=== PATIENT | female | born 1950 | race Caucasian/White ===

== ENCOUNTER 2019-11-29 02:45 | Inpatient (IN) | payer MEDICARE ==
[~2019-11-29] VITALS: Ht 160 cm; Wt 130.7 kg
[2019-11-29] MEDS ORDERED: LOVASTATIN40 MG PO (02:53)
[2019-11-29] MEDS ORDERED: HUMULIN 70100 UNIT/2 SC (02:55)
[2019-11-29] MEDS ORDERED: HUMULIN R100 UNIT/1 SC ×2 (02:57→02:58)
[2019-11-29] MEDS ORDERED: ASPIRIN ADULT L81 M1 PO (03:00)
[2019-11-29] MEDS ORDERED: METFORMIN HYD1000 MG PO (03:03)
[2019-11-29] MEDS ORDERED: Synthroid,Lev200 MCG PO (03:04)
[2019-11-29] MEDS ORDERED: ZOLOFT100 MG PO (03:05)
--- NOTE | 2019-11-29 03:37 | NUR ---
MARC JOSÉ a 69 year old F admitted via stretcher from the EMERGENCY ROOM as a voluntary by guardian admission. Arrived on unit at 0337AM. ALLERGIES: NONE. Vital signs are: [id number]/66. TELEPHONE PERMISSION FROM GUARDIAN DEMETRI AYALA RECIEVED. SHE WILL COME IN The AM sign the following forms with stated understanding: Authorization For The Release of Medical Information, Clothing List, Consent to Voluntary Admission and Hospitalization, Consent and Release Forms/Receipt of Rights, Acknowledgement of Advance Directive Information, Behavioral Health Consent Form, and Informed Consent of Medications. Admitted under the services of MARTÍN Ortiz MD. A search was conducted and hazardous articles were removed. Client was oriented to the unit. CLIENT DENIES BEING A PT AT [facility]. 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 STATES HE WORKED FOR HER AT THE [employer] AND MISSES HIM SO MUCH. STATES SHE DID NOT ATTACK OR THROW THINGS AT THE STAFF AND SHE IS FREE TO LEAVE THAT PLACE ANY TIME SHE WANTS BECAUSE SHE'S NOT A PATIENT. BECAME AGGRESSIVE WHEN TOLD SHE WOULD NEED SHOWER DUE TO URINE SMELL PRIOR TO BED. SHE HELD INK PEN IN FIST AND WAS SHAKING TOWARD MY FACE. PEN REMOVED. A SHORT TIME LATER SHE SAID, SEE I CALMED DOWN WELL. 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 UNABLE TO REDIRECT. SANDI BRUCE
--- NOTE | 2019-11-29 03:46 | NUR ---
DR GALLAGHER NOTIFIED OF MEDICAL CONSULT & MED REQ READY FOR REVIEW. STATED TO PUT CONSULT UNDER DR SOOD.
[2019-11-29 03:54] VITALS: BP 116/66
--- NOTE | 2019-11-29 04:05 | NUR ---
DR BARRERA ON UNIT TO SEE PT FOR MEDICAL CONSULT.
[2019-11-29 07:04] LABS: CHOLESTEROL 141 mg/dL (<200); HDL CHOLESTEROL 46 mg/dl (40-60); LDL CHOLESTEROL 70 mg/dL (9-159); TRIGLYCERIDES 127 mg/dl (<150); VLDL CHOLESTEROL 25 mg/dL (6-40)
[2019-11-29 07:44] LABS: VITAMIN D, 25-HYDROXY 10.8 ng/mL (30-100)
--- NOTE | 2019-11-29 08:15 | NUR ---
Treatment Plan meeting was held with Dr. Adams, YAKELIN Shaw, RN, AT, [employer] COOK-S and Cell Preparer in attendance. Plan for discharge next week. Pt. [facility] from [facility]. Will reach out to facility to discuss discharge planning.
[2019-11-29 08:57] VITALS: BP 112/67
--- NOTE | 2019-11-29 11:37 | NUR ---
AM GROUP/EXERCISE AND GAMES PT DID NOT ATTEND MORNING GROUP THERAPY. PT WAS IN BED RESTING.
--- NOTE | 2019-11-29 12:33 | NUR ---
Family meeting held with pt's guardian Harika Guidryasherjusta. Discussed pt's history. Harika became the court appointed guardian of pt in 09/10. Per Harika, pt was found in deplorable conditions and not caring for herself. 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 Pt believes that the group homes are running smoothly and that she is making business decisions. This is not the case. One chcf remains open and the propreties are being foreclosed upon. Pt also believes that her nephew recently who assisted in managing the group homes. Harika stated that this is a delusion of the patient. Harika stated that pt can become quite aggressive with staff. Plan is for pt to return to [facility].
--- NOTE | 2019-11-29 14:16 | NUR ---
Spoke with Doretha at [place]. Pt. will return to facility at discharge.
--- NOTE | 2019-11-29 14:30 | NUR ---
Clinical Updates faxed to [facility].
--- NOTE | 2019-11-29 15:33 | NUR ---
PM GROUP/FLORIDALMA PT ATTENDED AND PARTICIPATED IN AFTERNOON GROUP THERAPY. PT EXHIBITED NO AGGRESSIVE BEHAVIORS WHILE IN GROUP.
--- NOTE | 2019-11-29 18:27 | NUR ---
A&O X3. NO ADVERSE BEHAVIORS TODAY. BEHAVIORS MONITORED WITH Q15 MINUTE SAFETY CHECKS. MEDICATION COMPLIANT WITHOUT DIFFICULTY. NO HALLUCINATIONS OR DELUSIONS NOTED. NO SI/HI NOTED. SEE [facility] FLOWSHEET FOR SPECIFIC MONITORING.
[2019-11-29 20:00] VITALS: BP 138/63
--- NOTE | 2019-11-29 21:27 | NUR ---
UP IN WHEELCHAIR IN DININGROOM. CLIENT ABLE TO MOVE HERSELF WELL. INTERACTING WITH PEERS. REMAINS A&O x3 AT THIS TIME. PERIODS OF DELUSIONS AND SHORT TERM MEMORY LOSS CONTINUE. STATES I KNOW HER MARGARITA JOSÉ FROM YEARS AGO AT [facility]. UNABLE TO CONFIRM AT THIS TIME. STATES HAD A GREAT DAY PLAYING [employer] AND WINNING 2 GAMES.
--- NOTE | 2019-11-30 02:05 | NUR ---
24 HR chart check completed.
[2019-11-30 08:09] VITALS: BP 129/66
--- NOTE | 2019-11-30 08:15 | NUR ---
Treatment Plan meeting was held with Dr. Adams, YAKELIN Shaw, RN, AT, CORN PICKER-S and Medical Consultant in attendance. Plan for discharge next week. Pt. to return to [facility].
--- NOTE | 2019-11-30 10:58 | NUR ---
Clinical Updates faxed to [facility] Attn: Doretha [phone].
--- NOTE | 2019-11-30 11:37 | NUR ---
AM GROUP PT DID NOT ATTEND MORNING GROUP THERAPY. PT WAS IN BED SLEEPING.
--- NOTE | 2019-11-30 14:03 | NUR ---
PATIENT SITTING IN DINING ROOM, ASSISTED TO WHEELCHAIR TO PRIVATE ROOM TO ASSESS ABDOMEN. PATIENT REFUSED SKIN WOUND MEASUREMENTS AND PICTURES ON ADMISSION. PATIENT ALLOWED THIS NURSE TO MEASURE AND TAKE PICTURES. 3 AREA NOTED TO LEFT SIDE OF ABDOMEN, EXCORIATION NOTED TO ABDOMENAL FOLD. DR GALINDO NOTIFIED AND REVIEWED PREVIOUS WOUND TREATMENT FROM SENIOR CARE. CERAMIC SPRAYER, NURSING INSPECTOR BALANCE WHEEL MOTION AND GUARDIAN NOTIFIED. WOUND TREATMENTS IN PLACE.
--- NOTE | 2019-11-30 15:37 | NUR ---
PM GROUP/TOM VILLANUEVA PT ATTENDED AND PARTICIPATED IN ALL AFTERNOON GROUP THERAPY ACTIVITIES. PT EXPRESSED NO DELUSIONS WHILE IN GROUP NOR EXHIBITED ANY AGGRESSION OR AGITATION
--- NOTE | 2019-11-30 19:50 | NUR ---
PATIENT IS ALERT TO PERSON, PLACE AND SITUATION;ABLE TO VOICE NEEDS. MOOD IS DEPRESSED, ANGRY/IRRITABLE. DENIES ANY HALLUCINATIONS, DELUSIONS, HI/SI OR PAIN. PATIENT HAVING DELUSIONS OF NEPHEW PASSING RECENTLY. 1-2 PERSON ASSIST WITH ACTIVITIES OF DAILY LIVING, INCONTINENT OF BOWEL AND BLADDER. SET UP FOR MEALS, INTAKES ARE GOOD WITH ADQUATE FLUIDS. MEDICAITON COMPIANT. Q 15 MINUTE SAFETY CHECKS MAINTAINED. INTERACTIVE WITH STAFF AND PARTICIPATED IN GROUPS SESSIONS. CONTINUE TO MONITOR FOR EXIT SEEKING, AGGRESSION AND HALLUCINATIONS/DELUSIONS. PROVIDE ONE ON ONE AND REDIRECTION NEEDED.
[2019-11-30 20:23] VITALS: BP 146/72
--- NOTE | 2019-12-01 01:24 | NUR ---
NO ADVERSE BEHAVIORS NOTED. PATIENT ALERT AND ORIENTED X3. PT CALM, COOPERATIVE, AND INTERACTIVE. PT MEDICATION COMPLIANT WITHOUT DIFFICULTY AFTER REVIEW. PT DENIES SI/HI AND HALLUCINATIONS, NO NOTED RESPONDING TO INTERNAL STIMULI. NO PARANOIA OR DELUSIONS NOTED. COOPERATIVE WITH HOC, MOBILIZES SELF AROUND UNIT USING WHEELCHAIR, X2 ASSIST. PT C/O "ALL OF PAIN" OF 06/01 AT 0034 AND RECEIVED PRN TYLENOL 650mg REQUESTED. NO OTHER PHYSICAL COMPLAINTS NOTED. PT CURRENTLY LAYING DOWN WITH EYES CLOSED, RESPIRATIONS EASY AND REGULAR, NO SIGNS OR SYMPTOMS OF DISTRESS NOTED. PRN TYLENOL EFFECTIVE AT THIS TIME. PLAN IS TO CONTINUE TO MONITOR MOOD AND BEHAVIORS. PROVIDE 1:1 WITH THERAPEUTIC INTERVENTIONS NEEDED. ENCOURAGE MEDICATION COMPLIANCE AND EDUCATE. MAINTAIN Q 15 MIN CHECKS.
--- NOTE | 2019-12-01 04:51 | NUR ---
24 HOUR CHART CHECK COMPLETED.
--- NOTE | 2019-12-01 06:25 | NUR ---
MARC JOSÉ [id number] Please refer to the physician's history and physical for past medical history, comorbid conditions, and allergies. Diagnosis: IMPULSE CONTROL DISORDER NOS Peter Score: 14,MODERATE RISK WOUND DESCRIPTIONS: Wound Number: 1 Location of the wound: medial aspect of left lower abdominal fold ( distal ) Thickness: Partial Size: 0.3cm x 1.3cm x 0.1cm Tunneling: none Undermining: none Sinus Tract: none Presence of Exudate: Serous Amount: Light Color: Red Odor: None Periwound Skin Appearance: Scar Wound edges: approximated Pain (associated with wound): none at time of assessment How does patient state this happened? pt stated this was from her jeaida several months ago Wound Number: 2 Location of the wound: lateral aspect of left lower abdominal fold ( distal ) Thickness: Partial Size: 0.2cm x 0.4cm x 0.1cm Tunneling: none Undermining: none Sinus Tract: none Presence of Exudate: Serous Amount: Light Color: Red Odor: None Periwound Skin Appearance: Scar Wound edges: approximated Pain (associated with wound): none at time of assessment How does patient state this happened? pt stated this was from her jeaida several months ago Wound Number: 3 Location of the wound: left lower abdominal fold ( proximal ) Thickness: Partial Size: 0.5cm x 0.9cm x 0.1cm Tunneling: none Undermining: none Sinus Tract: none Presence of Exudate: Serous Amount: Light Color: Red Odor: None Periwound Skin Appearance: Scar Wound edges: approximated Pain (associated with wound): none at time of assessment How does patient state this happened? pt stated this was from her jeaida several months ago Surface the patient is resting on: Proform SKIN PREVENTION RECOMMENDATION: 1. Pressure redistribution support surface as appropriate 2. Elevate heels 3. Remove boots/TEDS every shift and reapply 4. Head of bed 30 degrees as tolerated 5. Assess nutrition and hydration 6. Manage moisture 7. Avoid the use of containment devices while in bed 8. Use absorptive products on surfaces limit layers of linens on bed 9. Turn and reposition every 1-2 hours in bed and every 1 hour in chair as tolerated 10. Weight shifts every 15 minutes while up in chair 11. Offloading with pillows or device to keep heels elevated off bed 12. Monitor skin at least every shift 13. Inspect under medical devices twice a day WOUND TREATMENT RECOMMENDATIONS: D/C stage 1 guidelines. D/C nystatin powder every 12 hours. Partial thickness guidelines: Cleanse medial aspect of left lower abdominal fold proximal, lateral aspect of left lower abdominal fold proximal, left lower abdominal fold distal aspect with nss and apply sureprep around the wound hydrogel to wound bed and cover with optifoam gentle every 2 days and prn for soiling.
--- NOTE | 2019-12-01 06:43 | NUR ---
CALLED, UPDATED ON PATIENTS RECENT BSG OF 100 AND IS DUE FOR 45 UNITS OF HUMULIN 70/30. STATED TO HOLD HUMULIN AT THIS TIME. NO OTHER ORDERS RECEIVED.
--- NOTE | 2019-12-01 06:56 | NUR ---
PATIENT OBSERVED ON Q 15 MIN CHECKS TO HAVE SLEPT APPROX 7 HOURS. NO SIGNS OR SYMPTOMS OF DISTRESS NOTED.
[2019-12-01 07:44] VITALS: BP 135/70
--- NOTE | 2019-12-01 08:06 | NUR ---
CONTACTED PT OFFICE IN REFERENCE TO CONSULT.
--- NOTE | 2019-12-01 08:15 | NUR ---
Treatment plan meeting was held with Dr. Adams, RN, AT, REHAB TRAINER-S and Senior Oracle Applications Developer in attendance. Plan for discharge next week Thursday or Thursday. Pt. will return to [facility].
--- NOTE | 2019-12-01 08:17 | NUR ---
PHYSICAL THERAPY Screen received as well as PT orders will follow thank you Salina Burns PT
--- NOTE | 2019-12-01 08:22 | NUR ---
Nursing screen and Occupational Therapy referral received. Thank you. Reyna Schulte OTR/L
--- NOTE | 2019-12-01 09:56 | NUR ---
Dr. Robles notified of wound care recommendations.
--- NOTE | 2019-12-01 10:00 | NUR ---
SPOKE WITH DR. MONTIEL IN REFERENCE TO PT BLOOD SUGAR AND /30 INSULIN. MONITOR AND REPORT BLOOD SUGARS TODAY
--- NOTE | 2019-12-01 11:46 | NUR ---
AM GROUP PT DID NOT ATTEND MORNING GROUP THERAPY. PT WAS IN BED SLEEPING.
--- NOTE | 2019-12-01 13:45 | NUR ---
Occupational Therapy evaluation completed on 3 with full eval to follow. Precautions include 3n unit precautions,fall risk left knee heron,mod complexity 35705. Recommend OT per POC and return to SNF to enable return home w/ family. Thank you. Carol Schulte OTR/L
--- NOTE | 2019-12-01 15:55 | NUR ---
PHYSICAL THERAPY Namrata completed moderate level of complexity 58297 recomend return to NH facility w f/u therapy. PT to work on transfers,amb,strengthening. Salina Burns PT
--- NOTE | 2019-12-01 15:56 | NUR ---
P: DELUSIONS ABOUT GROUP HOMES THAT SHE NEEDS TO RETURN TO FOR CARE OF HER PT. WOUNDS TO ABDOMEN, POOR MOBILITY I: TALKED WITH PT IN REFERENCE TO GROUP HOMES TO BRING REALITY TO THE FACT SHE IS NO LONGER IN CHARGE OF THE HOMES. PROVIDE WOUND CARE AND EDUCATE PT ON ENSURING TO KEEP AREA CLEAN WITHOUT PRESSURE BEING APPLIED TO SITES, ASSIST PT TO AMBULATE SHORT DISTANCES WITH STAFF R: PT COOPERATIVE PLEASANT WITH INTERACTION, PT HAS PANTS PULLED UP TO FOLD WHERE ESCORIATIONS ARE, ATTEMPT TO REPOSITION NEEDED. TOILET FREQUENTLY. PT AMBULATES WITH STAFF <10 FEET AT THIS TIME AND WILL [facility]IVOT [facility] WHEELCHAIR [facility], PT RECEPTIVE TO EDUCATION BUT IS NOT WILLING TO ACCEPT SHE IS NO LONGER IN CHARGE OF THE GROUP HOMES. P: CONTINUE TO APPROACH PT ABOUT REALITY, NO SI/HI NOTED. PT HAS NOT MADE ANY AGRESSIVE ACTIONS TOWARD STAFF, MEDICATION COMPLIANT WITHOUT DIFFICULTY. PT SMILING AND INTERACTIVE WITH STAFF, REQUIRES 1 FOR ALL ASPECTS OF CARE.
--- NOTE | 2019-12-01 15:56 | NUR ---
PM GROUP PT ATTENDED AND PARTICIPATED IN AFTERNOON GROUP THERAPY. PT WAS QUIET AND ON TASK. PT EXPRESSED NO DELUSIONAL IDEATIONS NOR EXHIBITED ANY AGITATION OR AGGRESSION. PT WAS PLEASANT AND COOPERATIVE.
--- NOTE | 2019-12-01 16:32 | NUR ---
DR. GALINDO UPDATED ON PT BLOOD SUGARS OF 139 AND 224 NEW ORDERS RECIEVED AT THIS TIME
[2019-12-01 20:07] VITALS: BP 132/61
--- NOTE | 2019-12-02 00:24 | NUR ---
NO ADVERSE BEHAVIORS NOTED. PATIENT ALERT AND ORIENTED X3. PT CALM, PLEASANT, AND INTERACTIVE. PT MEDICATION COMPLIANT WITHOUT DIFFICULTY AFTER REVIEW. PT DENIES SI/HI, HALLUCINATIONS, OR PAIN. NO PARANOIA/DELUSIONS NOTED. PT ABLE TO MAKE NEEDS KNOWN, COMPLIANT WITH CARE, ASSIST X1. PT CURRENTLY LAYING DOWN WITH EYES CLOSED, RESPIRATIONS EASY AND REGULAR ON ROOM AIR. NO SIGNS OR SYMPTOMS OF DISTRESS NOTED. PLAN IS TO CONTINUE TO MONITOR MOOD AND BEHAVIORS. PROVIDE 1:1 WITH THERAPEUTIC INTERVENTIONS. ENCOURAGE MEDICATION COMPLIANCE AND EDUCATE. MAINTAIN Q 15 MIN CHECKS.
--- NOTE | 2019-12-02 04:25 | NUR ---
Upon discharge recommend patient to follow up for wound care in outpatient setting continue current wound care orders at discharging facility.
--- NOTE | 2019-12-02 05:35 | NUR ---
24 HOUR CHART CHECK COMPLETED.
--- NOTE | 2019-12-02 05:53 | NUR ---
PT SLEPT APPROX 6 HOURS THIS SHIFT.
--- NOTE | 2019-12-02 06:39 | NUR ---
CALLED RESIDENT [phone], SPOKE TO DR. GALLAGHER, UPDATED ON PATIENTS RECENT BSG OF 128 AND IS DUE FOR HUMULIN 70/30, 40 UNITS. STATED TO GO AHEAD AND HOLD FOR NOW AND MONITOR. NO OTHER ORDERS RECEIVED.
--- NOTE | 2019-12-02 07:10 | NUR ---
PHYSICAL THERAPY Patient seen this am for therapy visit and just awakening supine in bed upon therapist arrival. Patient identified by name / and was joined by OT communications assistant for observation only. Patient reports no new c/o's and transfers supine to sit EOB, MOD A, while tolerating a minute or so of static sit to collect herself. Patient performed sit to stand MIN A, ambulating 20'x 1, use of wh walker, CGA, demonstrating very slow, "waddling" unsteady gait pattern. Patient needed v/c to improve upright posture and returned to her w/c following gait ex. Patient remained in w/c within activity room, under [facility] staff Supervision awaiting breakfast. Will continue per POC as tolerated, total treatment time 14 minutes. Shakeel Fitzgerald, CERAMIC WORKER
--- NOTE | 2019-12-02 07:30 | NUR ---
OT NOTE Pt was seen this A.M. 1:1 for 25 minute OT session with SCHEDULING COORDINATOR and nursing staff present for observation only. Upon arrival pt was supine in bed. Pt identified by name and and had no complaints at this time. Pt transferred supine to sit EOB with modA for assist with UB. While sitting EOB pt donned B socks with Kailyn while bringing her legs up to her knee level. Sit to stand completed from bed level with Kailyn and use of w/w for UE support. Functional mobility was then completed into the bathroom with CGA and use of w/w. There she trasnferred on/off standard commode with Kailyn. Pt doffed pants with SBA while seated and donned new pants with Kailyn for assist with donning over her feet. Pt doffed and donned new shirt with SBA while seated. Pt then stood sink side while washing her hands and face with CGA for safety. Pt had three LOB thrughout while standing without UE support for longer than 10 seconds at a time requiring Kailyn to correct. Pt was left sitting upright in the w/c in the dining mariee under [facility] staff supervision. Continue with rec D/C plan to return to SNF. LENORE Kirkpatrick/Lashanda
[2019-12-02 08:00] VITALS: BP 130/63
--- NOTE | 2019-12-02 08:15 | NUR ---
Treatment Plan meeting was held with YAKELIN Shaw, RN, AT, FUNERAL SERVICE LICENSEE-S and Pyroglazer in attendance. Plan for discharge next week. Pt. to return to [place].
--- NOTE | 2019-12-02 10:24 | NUR ---
AND TEAM ON UNIT TO SEE PT AT THIS TIME.
--- NOTE | 2019-12-02 10:27 | NUR ---
AND TEAM ON UNIT TO SEE PT AT THIS TIME.
--- NOTE | 2019-12-02 11:42 | NUR ---
AN GROUP PT DID NOT ATTEND MORNING GROUP THERAPY. PT WAS IN BED RESTING.
--- NOTE | 2019-12-02 14:31 | NUR ---
Clinical Updates faxed to [facility].
--- NOTE | 2019-12-02 15:13 | NUR ---
OCCUPATIONAL THERAPY CO-SIGN I approve of the Occupational Therapy notes written above. KAREEM GRIFFITHS OTR/Lashanda
--- NOTE | 2019-12-02 15:18 | NUR ---
PHYSICAL THERAPY CO-SIGN I approve of the Physical Therapy notes written above. Salina Burns PT
--- NOTE | 2019-12-02 15:36 | NUR ---
PM GROUP/MOVIE PT ATTENDED AFTERNOON GROUP THERAPY AND PARTICIPATED BY WATCHING THE MOVIE. PT EXPRESSED NO DELUSIONAL IDEATIONS WHILE IN GROUP. PT WAS QUIET AND FOCUSED ON THE MOVIE
--- NOTE | 2019-12-02 16:04 | NUR ---
P- PT CONTINUES WITH DELUSIONAL THOUGHTS REGARDING THE FACT THAT HER NEPHEW HAS RECENTLY . STAFF HAS LEARNED FROM GUARDIAN THAT THIS IS A DELUSION AND HER NEPHEW HAS NOT ACTUALLY PASSED RECENTLY. I- ORIENTATION, MOOD AND BEHAVIOR ASSESSED. ASSESSED PT FOR SI/HI, INTENT OR PLAN. ASSESSED PT FOR S/S HALLUCINATIONS, PARANOIA AND/OR DELUSIONS. MEDICATIONS ADMINISTERED PER PHYSICIAN'S ORDERS. ASSISTANCE WITH ADL CARE PROVIDED NEEDED. ENCOURAGED PT TO ATTEND AND PARTICIPATE IN [facility] GROUPS AND ACTIVITIES. WOUND CARE TREATMENTS COMPLETED ORDERED. R- PT IS ALERT AND ORIENTED TO PERSON, PLACE, APPROXIMATE TIME. MILD CONFUSION NOTED. PLEASANT AND COOPERATIVE. MOOD IS STABLE, AFFECT APPROPRIATE. SPEECH IS WNL AND COHERENT, ABLE TO MAKE NEEDS KNOWN WITHOUT DIFFICULTY. PT VOICED DELUSION REGARDING NEPHEW'S , PT STATED TO THIS NURSE "I'VE NEVER HAD THIS TYPE OF THING BEFORE, BUT YOU KNOW, MY NEPHEW RECENTLY AND IT'S JUST UPSET THE APPLE CART". PT STATES SHE IS FEELING BETTER THAN ADMISSION. PT DENIES SI/HI, INTENT OR PLAN. PT DENIES HALLUCINATIONS, NO RESPONSE TO INTERNAL STIMULI NOTED. NO PARNOIA NOTED. PT IS MED COMPLIANT WITHOUT DIFFICULTY. PT INTERACTS WELL WITH STAFF AND PEERS. NO DISTRESS NOTED. P- PLAN TO CONTINUE CURRENT TREATMENT, CONTINUE TO MONITOR MOOD AND BEHAVIORS, PROVIDE APPROPRIATE REORIENTATION, REDIRECTION AND 1:1 NEEDED. CONTINUE TO ENCOURAGE MEDICATION COMPLIANCE WELL GROUP ATTENDANCE AND PARTICIPATION.
[2019-12-02 20:00] VITALS: BP 128/70
--- NOTE | 2019-12-02 21:35 | NUR ---
Patient alert and oriented x3. Mood is calm,pleasant and cooperative. Patient denies SI/HI at this time. No hallucinations/delusions noted at this time. Patinet compliant with HS medications without any difficulty. Provided 1:1 for emotional support and therapeutic communication. Patient cooperative with HOC. Plan to continue to encourage medication compliance. Also continue to provide emotional support. Will continue to monitor moods/behaviors. Q 15 minute safety checks continued and maintained. See [facility] flowsheet for further documentation.
--- NOTE | 2019-12-03 00:31 | NUR ---
24 HR chart check completed.
--- NOTE | 2019-12-03 00:46 | NUR ---
Medicated Tylenol po prn given for c/o bilateral leg discomfort. Will monitor effectiveness.
--- NOTE | 2019-12-03 05:50 | NUR ---
Patient slept approx. 5 hours throughout shift with 1 awakening. Q 15 minute safety checks continued and maintained.
--- NOTE | 2019-12-03 06:30 | NUR ---
Called and notified Dr. Ross regarding am blood sugar of 139 and patient is due for Insulin 70/[address] Ross said to hold that for this morning.
[2019-12-03 07:54] VITALS: BP 124/67
--- NOTE | 2019-12-03 10:00 | NUR ---
[facility], UPDATE GIVEN.
--- NOTE | 2019-12-03 10:41 | NUR ---
NO ADVERSE MOODS OR BEHAVIORS THIS MORNING. PT IS ALERT AND ORIENTED TO PERSON, PLACE, APPROX TIME. RESPS EASY AND EVEN ON ROOM AIR. MOOD IS STABLE, AFFECT APPROPRIATE. SPEECH IS WNL AND COHERENT, ABLE TO MAKE NEEDS KNOWN WITHOUT DIFFICULTY. PT DENIES SI/HI, INTENT OR PLAN. PT DENIES HALLUCINATIONS, NO RESPONSE TO INTERNAL STIMULI NOTED. NO PARANOIA OR DELUSIONS NOTED. PT IS CALM, PLEASANT AND COOPERATIVE. PT OFFERS NO COMPLAINTS. MED COMPLIANT WITHOUT DIFFICULTY. PT INTERACTS WELL WITH STAFF AND PEERS. NO DISTRESS NOTED. PLAN TO CONTINUE CURRENT TREATMENT, CONTINUE TO MONITOR MOOD AND BEHAVIORS, PROVIDE APPROPRIATE REORIENTATION, REDIRECTION AND 1:1 NEEDED. CONTINUE TO ENCOURAGE MEDICATION COMPLIANCE WELL GROUP ATTENDANCE AND PARTICIPATION.
--- NOTE | 2019-12-03 12:06 | NUR ---
AM GROUP/LEISURE SKILLS PT IN ATTENDANCE HALF-WAY [place] GROUP. PT PLEASANT LOOKING THROUGH MORNING JOURNAL AND SOCIALIZING WITH PEERS AND STAFF.PT EXPRESSES NO DELUSIONS OR AGITATION AT THIS TIME. PT WILL CONTINUE TO ATTEND AND PARTICIPATE IN FUTURE GROUP SESSIONS.
--- NOTE | 2019-12-03 12:26 | NUR ---
PRN TYLENOL 650MG PO GIVEN AT THIS TIME FOR PT C/O PAIN TO LEFT KNEE RATED LEVEL 6/10 ON PAIN SCALE. WILL MONITOR FOR EFFECTIVENESS.
--- NOTE | 2019-12-03 14:00 | NUR ---
PT STATES TYLENOL HAS BEEN EFFECTIVE FOR PAIN RELIEF. PT STATES "OH YEAH, THAT REALLY HELPED. I WAS ABLE TO RELAX FOR A WHILE". PT VOICES NO FURTHER COMPLAINTS AT THIS TIME.
--- NOTE | 2019-12-03 15:47 | NUR ---
PM GROUP/BINGO! PT ATTENDED AND PARTICIPATED IN ALL GROUP ACTIVITY'S. PT EXPRESSES NO DELUSIONS OR AGITATION AT THIS TIME. PT WILL CONTINUE TO ATTEND AN DPARTICIPATE IN FUTURE GROUP SESSIONS.
--- NOTE | 2019-12-03 17:10 | NUR ---
PRN TYLENOL 650MG PO GIVEN AT THIS TIME PER PT REQUEST FOR C/O KNEE PAIN RATED LEVEL 6/10 ON PAIN SCALE. WILL MONITOR FOR EFFECTIVENESS.
--- NOTE | 2019-12-03 17:10 | NUR ---
SPOKE WITH VIA TELEPHONE, MADE AWARE PT'S MORNING DOSES OF HUMULIN 70/30 HAVE BEEN HELD FOR THE PAST 3 DAYS FOR BSGs RANGING FROM 100-130s. MADE AWARE CURRENT BSG PRIOR TO DINNER IS 154 AND PT IS SCHEDULED TO RECIEVE HUMULIN 70/30 40 UNITS AND HUMALOG 3 UNITS COVERAGE PER SLIDING SCALE. STATES TO GIVE HUMILIN 70/30 AND HOLD HUMALOG TONIGHT. READ BACK AND VERIFIED.
[2019-12-03 20:00] VITALS: BP 118/65
--- NOTE | 2019-12-03 20:27 | NUR ---
24 HR chart check completed.
--- NOTE | 2019-12-03 23:08 | NUR ---
PT WAS SITTING IN THE DINING ROOM TALKING APPROPRIATELY WITH A MALE PEER. MOOD IS STABLE. ALERT & ORIENTED TO PERSON, PLACE & TIME. STATED THAT SHE IS FEELING MUCH BETTER. MAKES APPROPRIATE EYE CONTACT & CONVERSATIONS. COMPLIANT WITH MEDICATIONS. HS BEDSIDE GLUCOSE 157. PT STATED THAT SHE LIKED IT HERE & WOULD LIKE TO STAY.
--- NOTE | 2019-12-04 06:04 | NUR ---
PT HAS SLEPT QUIETLY PAST 2345
--- NOTE | 2019-12-04 06:45 | NUR ---
AM BEDSIDE GLUCOSE 159
[2019-12-04 07:50] VITALS: BP 115/62
--- NOTE | 2019-12-04 10:08 | NUR ---
DR. SOOD ON UNIT TO ASSESS PATIENT.
--- NOTE | 2019-12-04 13:17 | NUR ---
PATIENT COMPLAINED OF HAVING A HEADACHE. RATING PAIN 7/10. PRN TYLENOL 650MG PO GIVEN AT THIS TIME.
--- NOTE | 2019-12-04 13:18 | NUR ---
PATIENT IS ALERT AND ORIENT TO PERSON, PLACE, TIME; ABLE TO VOICE NEEDS. MOOD IS STABLE. DENIES ANY HALLUCINATIONS, DELUSIONS, HI/SI; RECIEVED TYLENOL FOR HEADACHE. MEDICATION COMPLAINT WITH EDUATION PROVIDED. Q 15 MINUTE SAFETY CHECKS MAINTAINED. NO RESPONSE TO INTERNAL STIMULI OBSERVED. 1 PERSON ASSIST WITH ACTIVITIES OF DAILY LIVING, CONTINENT OF BOWEL AND BLADDER. SET UP FOR MEALS, INTAKES ARE GOOD WITH ADEQUATE FLUIDS. PATIENT CHOOSES TO SLEEP THROUGH BREAKFAST. CONTINUE TO MONITOR FOR DELUSION, AGGRESS AND EXIT SEEKING. PROVIDE ONE ON ONE AND REDIRECTION NEEDED.
--- NOTE | 2019-12-04 14:15 | NUR ---
NO FURTHER COMPLAINTS OF PAIN. PRN TYLENOL EFFECTIVE.
--- NOTE | 2019-12-04 15:11 | NUR ---
Shift chart check completed.
--- NOTE | 2019-12-04 19:24 | NUR ---
24 HR chart check completed.
[2019-12-04 19:51] VITALS: BP 119/65
--- NOTE | 2019-12-04 21:27 | NUR ---
PT SAT IN THE DINING ROOM THIS EVENING INTERACTING WITH SELECT PEERS APPROPRIATELY. MOOD IS PLEASANT. STABLE. ALERT & ORIENTED X 3 WITH MEMORY GAPS. CO-OPERATIVE. ATE SNACK. COMPLIANT WITH MEDICATIONS. HS BEDSIDE GLUCOSE 145. REQUESTED & MEDICATED WITH TYLENOL PRN @ 2041 FOR C/O H/A. RATED PAIN 5/10. STATED IT WAS EFFECTIVE. ALSO MEDICATED WITH ROZEREM 8 MG @ 2109 FOR ASSISTANCE WITH SLEEP.
--- NOTE | 2019-12-05 05:53 | NUR ---
ROZEREM HAS BEEN EFFECTIVE FOR SLEEP. PT HAS SLEPT PAST 2315.
--- NOTE | 2019-12-05 06:29 | NUR ---
AM BEDSIDE GLUCOSE 93
[2019-12-05 07:46] VITALS: BP 116/52
--- NOTE | 2019-12-05 08:15 | NUR ---
Treatment Plan meeting was held with Dr. Adams, YAKELIN Shaw, RN, AT, COIN MACHINE ASSEMBLER-S and Deployment Engineer in attendance. Plan for discharge Thu/ with return to [facility]. Clinical Updates faxed to facility.
--- NOTE | 2019-12-05 11:45 | NUR ---
AM GROUP PT ATTENDED MORNING GROUP THERAPY AND PARTICIPATED IN ALL ACTIVITIES. PT WAS QUIET AND ON TASK AND EXPRESSED NO DELUSIONAL IDEATIONS WHILE IN GROUP
--- NOTE | 2019-12-05 15:36 | NUR ---
PM GROUP PT DID NOT ATTEND AFTERNOON GROUP THERAPY. PT WAS IN BED NAPPING
--- NOTE | 2019-12-05 18:46 | NUR ---
PATIENT IS ALERT TO PERSON, PLACE, TIME AND SITUATION WITH INTERMITTANT CONFUSION. MOOD IS STABLE. DENIES ANY HALLUCINATIONS, DELUSIONS, HI/SI OR PAIN. MEDICATION COMPLAINT WITH EDUCATION. Q 15 MINUTE SAFETY CHECKS MAINTAINED. INTERACTIVE WITH STAFF AND OTHER PATIENTS, PARTICIPATES IN GROUPS SESSION. 1 PERSON ASSIST WITH ACTIVITIES OF DAILY LIVING, INCONTINENT OF BOWEL AND BLADDER. UP IN WHEELCHAIR. SET UP FOR MEALS, INTAKES ARE GOOD WITH ADEQUATE FLUIDS. CONTINUE TO MONITOR MOOD, AGGRESSION AND EXIT SEEKING; PROVIDE ONE ON ONE AND REDIRECTION NEEDED.
[2019-12-05 19:55] VITALS: BP 115/57
--- NOTE | 2019-12-05 20:46 | NUR ---
EVENING GROUP/LEISURE SKILLS PT SITTING AT BACK OF ROOM PLAYING [employer]. PT WILL JOIN IN PEER CONVERSATION EVERY ONCE IN A WHILE. PT PLEASANT AND ON TASK WITH NO AGITATION OR DELUSIONS EXPRESSED. PT WILL CONTINUE TO ATTEND AND PARTICIPATE IN FUTURE GROUP SESSIONS.
--- NOTE | 2019-12-05 23:27 | NUR ---
24 HR chart check completed.
--- NOTE | 2019-12-06 00:20 | NUR ---
PT SAT QUIETLY IN THE DINING ROOM THIS EVENING KEEPING TO HERSELF. MOOD IS VERY PLEASANT WHEN TALKING TO STAFF. STABLE. ALERT & ORIENTED X 4 WITH SOME MEMORY GAPS. CO-OPERATIVE. ATE SNACK. COMPLIANT WITH MEDICATIONS. HS BEDSIDE GLUCOSE 165. REQUESTED & MEDICATED AT 2051 WITH TYLENOL PRN FOR C/O BILATERAL FOOT PAIN. 05/02 & ROZEREM 8 MG FOR ASSISTANCE WITH SLEEP.
--- NOTE | 2019-12-06 06:35 | NUR ---
TYLENOL & ROZEREM HAVE BEEN EFFECTIVE & PT HAS SLEP PAST 2214
--- NOTE | 2019-12-06 06:45 | NUR ---
AM BEDSIDE GLUCOSE 177
--- NOTE | 2019-12-06 07:25 | NUR ---
PHYSICAL THERAPY Patient seen this am for therapy visit and was sitting up in activity room chair upon therapist arrival. Patient identified by name / and was joined by OT pharmaceutical assistant who was present for observation only. Patient reports no new c/o's at this time, transfering sit to stand CGA, then ambulating 40' x 1, use of wh walker standing support, CGA, while demonstrating very slow, antalgic gait pattern. Patient c/o's of L knee pain / weakness during prolonged standing activities and needed w/c follow for safety secondary to quick onset of fatigue. Patient returned to w/c for short seated break then ambulated additional 30'x 1 before remaining in activity w/c at table awaiting breakfast, under [facility] staff Supervision. Will continue per POC as tolerated, total treatment time 18 minutes. Shakeel Fitzgerald, MOBILE DEVICE DEVELOPER
--- NOTE | 2019-12-06 07:35 | NUR ---
OT NOTE Pt was seen this A.M. 1:1 for 20 minute OT session with MEDIA SUPERVISOR and nursing staff present for observation only. Upon arrival pt was sitting upright in the dining mariee. Pt identified by name and and had complaints of L knee pain which she did not rate on 0-10 pain scale. Pt completed sit to stand from chair level with Kailyn due to low surface followed by standing pivot to the w/c with CGA and use of w/w for UE support. Pt was then taken to the bathroom where she completed sit to stand from chair level with Kailyn followed by functional mobility into the bathroom with CGA and use of w/w. There she stood sink side while washing her hands and face with CGA for safety. After aprox 2 mintues of static standing pt reported she felt unsteady requesting to sit for a seated break. Pt then finished task after a seated rest break with CGA. While seated in the w/c pt doffed and donned B socks with SBA while using compensatory technique of bringing her leg up over her knee. Pt was left sitting upright in the dining mariee in the w/c under [facility] staff supervision. Continue with rec D/C plan to return to SNF. LENORE Kirkpatrick/Lashanda
[2019-12-06 08:00] VITALS: BP 111/67
--- NOTE | 2019-12-06 08:46 | NUR ---
ON UNIT TO SEE PT AT THIS TIME. UPDATE GIVEN.
--- NOTE | 2019-12-06 08:47 | NUR ---
AND AURELIANO PMHNP-BC ON UNIT TO SEE PT AT THIS TIME. UPDATE GIVEN.
--- NOTE | 2019-12-06 11:35 | NUR ---
Left Message for Doretha at [facility] to discuss discharge plans for tommorow and arrange for transportation.
--- NOTE | 2019-12-06 11:35 | NUR ---
AM GROUP PT ATTENDED MORNING GROUP THERAPY AND PARTICIPATED IN ALL ACTIVITIES. PT WAS FOCUSED AND ON TASK. PT IS PLEASANT AND COOPERATIVE. PT EXPRESSED NO DELUSIONS WHILE IN GROUP
--- NOTE | 2019-12-06 15:34 | NUR ---
PM GROUP PT ATTENDED AFTERNOON GROUP THERAPY AND PARTICIPATED BY PLAYING [employer]. PT WAS QUIET AND FOCUSED. PT EXPRESSED NO DELUSIONAL IDEATIONS WHILE IN GROUP
--- NOTE | 2019-12-06 15:48 | NUR ---
Met with pt individually. Pt shared that she is not happy residing at [facility] and not happy with having a guardian. Pt explained that she and her daughter thought that having a DPOAHC was all that was needed. Educated pt about the power of a guardianship vs that of a DPOAHC. Pt stated that she knew what she was doing at [facility] and that she was trying to get kicked out. After meeting with pt, phoned pt's guardian and discussed pt's thoughts and request for this senior mortgage underwriter to phone pt's daughter. Harika stated that this senior mortgage underwriter could speak to pt's daughter.
--- NOTE | 2019-12-06 16:10 | NUR ---
NO ADVERSE MOODS OR BEHAVIORS THIS SHIFT. PT IS ALERT AND ORIENTED X4. MEMORY APPEARS TO BE INTACT. RESPS EASY AND EVEN ON ROOM AIR. MOOD APPEARS STABLE WITH APPROPRIATE AFFECT. SPEECH IS WNL ANDC OHERENT, ABLE TO MAKE NEEDS KNOWN WITHOUT DIFFICULTY. INTERACTIVE WITH STAFF AND PEERS. PT DENIES SI/HI, INTENT OR PLAN. PT DENIES HALLUCINATIONS, NO RESPONSE TO INTERNAL STIMULI NOTED. NO PARANOIA OR DELUSIONS NOTED. PT IS CALM, PLEASANT AND COOPERATIVE. MED COMPLIANT WITHOUT DIFFICULTY. NO DISTRESS NOTED. PLAN TO CONTINUE CURRENT TREATMENT; CONTINUE TO MONITOR MOOD AND BEHAVIORS, PROVIDE APPROPRIATE REORIENTATION, REDIRECTION AND 1:1 NEEDED. CONTINUE TO ENCOURAGE MEDICATION COMPLIANCE WELL GROUP ATTENDANCE AND PARTICIPATION.
--- NOTE | 2019-12-06 17:58 | NUR ---
DURING PM MED PASS PT STATES TO THIS NURSE "CAN YOU LOOK UP ON THAT COMPUTER HOW TO GET RID OF A GUARDIAN FOR ME?" ADVISED PT SHE SHOULD DISCUSS THIS WITH SPINDLE REPAIRER. PT STATES "OK. I KNOW IT'S GOING TO BE A LONG PROCESS".
[2019-12-06 20:00] VITALS: BP 109/56
--- NOTE | 2019-12-06 20:33 | NUR ---
EVENING GROUP/BINGO PT ATTENDED AND PARTICIPATED IN ALL RGOUP ACTIVITY. PT PLEASANT AND ON TASK WITH NO AGITATION OR DELUSIONS EXPRESSED. PT WILL CONTINUE TO ATTEND AN DPARTICIPATE IN FUTURE GROUP SESSIONS.
--- NOTE | 2019-12-07 01:09 | NUR ---
PLEASANT, COOPERATIVE, MEDICATION COMPLIANT, SHE ISOLATED HERSELF TO CHAIR IN BACK OF [facility]. SHE WOULD INTERACT WHEN SPOKEN TO BY STAFF, PT REQUEST TYLENOL AND HER "SLEEPING MEDICATION " TONIGHT WHEN APPROACHED AT 1ST CONTACT . MEDICATION ADMINISTERED DURING H.S MED PASS AND EFFECTIVE AT THIS TIME. NO SI/HI OR DELUSIONS NOTED, PT MADE NO REFERENCE TO GROUP HOMES OR ASPECTS OF CARE, PT CONTINUES TO BE MONITORED FOR 15 MIN CHECKS AT [facility].
--- NOTE | 2019-12-07 06:17 | NUR ---
AM BEDSIDE GLUCOSE 152
--- NOTE | 2019-12-07 07:20 | NUR ---
PHYSICAL THERAPY Patient seen this am for therapy visit and was sitting up in her w/c within activity room upon therapist arrival. Patient identified by name / and was very pleasant this morning voicing no c/o's pain at rest. OT teachers assistant was present for observation only during SITE SUPERVISING TECHNICAL OPERATOR visit as patient transfers sit to stand CGA. Patient ambulates with use of wh walker, CGA, 40'x 1, demonstrating antalgic gait pattern, secondary to c/o of increased L knee pain. Patient states her knee always hurts during prolonged standing activities and needed v/c to stand tall with increased stride. Patient returned to her w/c and transported back to activity room awaiting breakfast. Patient remained under [facility] staff Supervision and will continue per POC as tolerated. Total treatment time 14 minutes. Shakeel Bustillo, SITE SUPERVISING TECHNICAL OPERATOR
--- NOTE | 2019-12-07 07:35 | NUR ---
OT NOTE Pt was seen this A.M. 1:1 for 15 minute OT session with STUDENT ACTIVITIES DIRECTOR and nursing staff present for observation only. Upon arrival pt was sitting upright in the w/c in the dining mariee. Pt identified by name and and had no complaints of pain at rest; however, with activity pt had complaints of 7/10 L knee pain. Pt was taken to the bathroom where she completed sit to stand from w/c level with CGA and use of w/w for UE support. Functional mobility was then completed to the sink with CGA and use of w/w with one standing rest break throughout due to L knee pain. She then stood sink side while washing her hands and face with CGA for safety. Pt required one seated rest break due to fatigue after aprox 3 minutes of static standing. Pt was left sitting upright in the w/c in the dining mariee under [facility] staff supervision. Continue with rec D/C plan to return to SNF. JS Kirkpatrick
[2019-12-07 08:00] VITALS: BP 118/54
--- NOTE | 2019-12-07 08:15 | NUR ---
Treatment Plan meeting was held with Dr. Adams, FURNITURE DUSTER, RN, AT, OPTICAL EFFECTS LAYOUT PERSON-S and Valve Steamer in attendance. Plan for discharge today with return to [facility]. Transportation arranged with [facility] to transport with orange picker machine operator time 12:30.
--- NOTE | 2019-12-07 08:45 | NUR ---
ON UNIT TO SEE PT AT THIS TIME. MADE AWARE OF DISCHARGE FOR TODAY.
--- NOTE | 2019-12-07 08:47 | NUR ---
AND AURELIANO PMHNP-BC ON UNIT TO SEE PT AT THIS TIME. UPDATE GIVEN.
[2019-12-07] MEDS ORDERED: RIVASTIGMINE T1.5 M1 PO (09:51)
[2019-12-07] MEDS ORDERED: ROZEREM8 MG PO (09:51)
[2019-12-07] MEDS ORDERED: MEMANTINE HCL10 MG PO (09:51)
[2019-12-07] MEDS ORDERED: DIVALPROEX SOD250 MG PO (09:51)
[2019-12-07] MEDS ORDERED: DIVALPROEX SOD500 MG PO (09:51)
[2019-12-07] MEDS ORDERED: RISPERIDONE0.5 MG PO (09:51)
--- NOTE | 2019-12-07 11:15 | NUR ---
NURSE TO NURSE REPORT GIVEN TO MARIZA LUIS.
--- NOTE | 2019-12-07 11:46 | NUR ---
Left Message for Harika Guidryina Legal Guardian to notify of discharge and black pickler time. Discharge Paperwork Faxed to [facility] [phone].
--- NOTE | 2019-12-07 11:53 | NUR ---
AM GROUP PT ATTENDED MORNING GROUP THERAPY AND PARTICIPATED IN ALL ACTIVITIES. PT WAS ON TASK AND PLEASANT. PT EXPRESSED NO DELUSIONAL IDEATIONS WHILE IN GROUP.
[2019-12-07] MEDS ORDERED: RIVASTIGMINE1 EACH T (12:23)
--- NOTE | 2019-12-07 12:54 | NUR ---
PT DISCHARGED BACK TO [facility] AT THIS TIME VIA [facility] WITH 2 NEWS VIDEOTAPE EDITOR. ALL PERSONAL BELONGINGS WERE SENT WITH THE PT. PT REFUSED DISCHARGE WOUND PHOTOS. PT LEFT THE UNIT IN STABLE CONDITION AT 1254 WITH CADD MANAGER.
--- NOTE | 2019-12-07 13:01 | NUR ---
Patient discharged today to [facility]. Follow-up will be with Dr Adams, visiting psychiatrist. While at [facility], pt's behaviors improved. She was no longer voicing paranoid delusions and her confusion lessened. Pt did participate in programming. This bond writer spoke with pt's guardian yesterday and informed her of the discharge today.
--- NOTE | 2019-12-08 07:29 | NUR ---
PHYSICAL THERAPY CO-SIGN I approve of the Physical Therapy notes written above. Salina Burns PT
--- NOTE | 2019-12-09 07:44 | NUR ---
OCCUPATIONAL THERAPY CO-SIGN I approve of the Occupational Therapy notes written above. Cassandra Ludwig, OTR/L
== END 2019-12-07 12:55 | disposition other institution (70) | DRG 885 ==
LOC: 3N 02:45
PROVIDERS: ADMIT Psychiatry & Neurology Psychiatry
DX: F33.3 Major depressive disorder, recurrent, severe with psychotic symptoms (principal); F23 Brief psychotic disorder; N39.0 Urinary tract infection, site not specified; F02.81 Dementia in other diseases classified elsewhere, unspecified severity, with behavioral disturbance; F63.9 Impulse disorder, unspecified; E03.9 Hypothyroidism, unspecified; E87.8 Other disorders of electrolyte and fluid balance, not elsewhere classified; E11.65 Type 2 diabetes mellitus with hyperglycemia; G30.9 Alzheimer's disease, unspecified; F41.9 Anxiety disorder, unspecified; E87.6 Hypokalemia; Z79.4 Long term (current) use of insulin; Z90.49 Acquired absence of other specified parts of digestive tract; Z83.3 Family history of diabetes mellitus; Z82.3 Family history of stroke; Z79.82 Long term (current) use of aspirin; Z86.73 Personal history of transient ischemic attack (TIA), and cerebral infarction without residual deficits; Z79.899 Other long term (current) drug therapy